=== PATIENT | male | born 1970 | race Caucasian/White ===

== ENCOUNTER 2016-08-10 22:46 | Inpatient (IN) | payer BC ==
[~2016-08-10] VITALS: Ht 182.9 cm; Wt 124.9 kg
--- NOTE | 2016-08-11 19:07 | ER ---
ADMIT: 08/11/2016 RM/LOC: 622 [facility] MR#: [id number] [id number] [address] NIEVES, DINAH Florez [place] [address] Emergency Room Report SEX: M AGE: 46 : 1970 DATE: 08/10/2016 HISTORY OF PRESENT ILLNESS: The patient is a 46-year-old male with past medical history of bipolar disorder and partial small bowel obstruction. Came to the ER with chief complaint of 1 day of zlvddzeo-kt-wceozi abdominal distention and also epigastric abdominal pain, which is crampy and moderate to severe. The patient states the previous time when he had similar symptoms, he was diagnosed with partial small bowel obstruction. The patient states at the moment, he is not nauseous and last bowel movement was yesterday and was slightly loose, but states that he was expecting to have a bowel movement daily, which he has not had yet. The patient is not sure whether he passed gas or not. PHYSICAL EXAMINATION: GENERAL: The patient is in moderate distress. HEAD and NECK: Normal. CHEST: Clear bilaterally. HEART: Normal heart sounds without any murmurs or gallops. ABDOMEN: Very distended, per patient, it is way more than the usual abdominal girth. There is moderate tenderness in the epigastric and upper quadrants, more in the epigastric. I can hear bowel sounds in all quadrants. There is no rebound or guarding. The rest of the physical examination is noncontributory and normal. LABORATORY DATA AND IMAGING: Lab work was noncontributory and negative. CT scan of the abdomen and pelvis was suggestive for partial small bowel obstruction. EMERGENCY ROOM COURSE: The patient received IV fluids, normal saline 1 L in the ER. Pain was moderately controlled with doses of morphine IV. Family Medicine was consulted. The patient was admitted for abdominal pain, partial small bowel obstruction rule out. Hunter Farmer MD/ darvin JOB #: [id number] CC: Buck Weir MD, Attending Physician Buck Weir MD, Family Physician
[2016-08-14] MEDS ORDERED: KLONOPIN DPS1 MG PO (10:47)
[2016-08-14] MEDS ORDERED: LAMICTAL200 MG PO (10:47)
[2016-08-14] MEDS ORDERED: CELEXA DPS20 MG PO (10:48)
[2016-08-14] MEDS ORDERED: INVEGA9 MG PO (10:48)
[2016-08-14] MEDS ORDERED: COLACE-DPS100 MG PO (10:49)
--- NOTE | 2016-09-02 10:39 | HP ---
ADMIT: 08/11/2016 RM/LOC: 622 [facility] MR#: [id number] [facility]#: [id number] [id number] [address] NIEVES, DIN[place] [address] History and Physical SEX: M AGE: 46 : 1970 DATE OF SERVICE: CHIEF COMPLAINT: A 48 hours of abdominal distention and generalized pain. HISTORY OF PRESENT ILLNESS: The patient is a 46-year-old male with past medical history of bipolar disorder and generalized anxiety disorder who presented to the emergency room with 48 hours of abdominal pain and distention. He reports that the distention happen slowly over the previous 48 hours along with that he developed an achy to sharp pain that was generalized throughout his abdomen, worst in the right lower quadrant. He did have a small bowel movement 24 hours prior to admission. They reported is a much smaller volume than typical. He denies any blood in his stools. He reports unremarkable bowel history stating his fairly regular bowel movements without any history of melena, hematochezia, or frequent diarrhea. He has no family history of inflammatory bowel disease. He was admitted 10 years ago for a small bowel obstruction that resolved with conservative management. He has never had any surgeries to his abdomen. He denies any nausea, vomiting, fevers, chills, chest pain, shortness of breath, or peripheral edema with this episode. He states that 6 hours since admission, he already feels significantly better feeling as if he is past some flatulence. PAST MEDICAL HISTORY: Bipolar disorder, generalized anxiety disorder, history of prior small bowel obstruction in 2006. MEDICATIONS: 1. Clonidine 1 mg p.o. daily. 2. Invega 9 mg p.o. daily. 3. Lamictal 400 mg p.o. daily. 4. Citalopram 20 mg p.o. daily. ALLERGIES: PENICILLIN. FAMILY HISTORY: The patient denies any family history of inflammatory bowel disease. He has diabetes in his father and pulmonary fibrosis. SOCIAL HISTORY: The patient is single. 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 Denies any alcohol or tobacco use. REVIEW OF SYSTEMS: A 10-point review of systems was completed and negative except as noted in the HPI. PHYSICAL EXAMINATION: VITAL SIGNS: 98.1, 75, 133/74, 18, 97%. GENERAL: Awake, alert, oriented, and in no acute distress. Sitting in bed, appears comfortable. HEENT: Head is normocephalic and atraumatic. Pupils are equal, round, and reactive to light. Extraocular muscles are intact. Mucous membranes are moist. NECK: Supple. Trachea is midline. Thyroid is not palpable. HEART: Regular rate and rhythm without murmur. No appreciable JVD, no ADMIT: 08/11/2016 RM/LOC: 622 [facility] MR#: [id number] [address] [address] DINAH PICKETT [address] [place] [address] History and Physical SEX: M AGE: 46 : 1970 carotid bruits. LUNGS: Clear to auscultation bilaterally. ABDOMEN: Obese, distended, mild tenderness to palpation greatest in the right lower quadrant. No rebound or guarding. No appreciable ascites. EXTREMITIES: Without cyanosis, clubbing, or edema. NEURO: Grossly intact. PSYCH: Normal mood and affect. LABORATORY DATA: WBC 8.3, HgB 14.6, PLT 244, creatinine 0.8. Lipase negative. CT scan distended with fluid-filled loops of small bowel in the right lower quadrant favoring high-grade partial small bowel obstruction with differential include strictures from inflammatory bowel disease or restriction from adhesions. ASSESSMENT: 1. Abdominal pain and distention secondary to small-bowel obstruction. 2. Small bowel focal narrowing on CT. 3. Bipolar disorder. 4. Anxiety. PLAN: We will admit the patient and made him n.p.o. with IV fluids to maintain hydration. We will advance the diet to clear liquids today as long as the patient tolerates without nausea and vomiting. May have morphine p.r.n. for pain. We will recommend the patient follows up as an outpatient for endoscopy and colonoscopy to further assess the structure seen on CT. Palma Wilkins MD Resident / Buck Weir MD / darvin JOB #: [id number] CC: Buck Weir, Attending Physician Buck Weir, Family Physician
--- NOTE | 2016-10-06 08:27 | DS ---
ADMIT: 08/11/2016 RM/LOC: 622 [facility] MR#: [id number] [id number] [address] DINAH PICKETT Jyoti Greer [place], [place] [id number] Discharge Summary SEX: M AGE: 46 : 1970 ADMISSION DATE: 08/11/2016 DISCHARGE DATE: 08/13/2016 FINAL DIAGNOSES: 1. Partial small bowel obstruction. 2. Bipolar disorder. 3. Generalized anxiety disorder. REASON FOR ADMISSION: This is a 46-year-old, white male, assigned to us on city call, who presented to the emergency room with abdominal distention, pain, discomfort for the last 48 hours. He had a small bowel movement the Friday prior to admission but no nausea no vomiting. Workup did reveal at least a partial small bowel obstruction. Therefore, he is admitted for further workup and stabilization. HOSPITAL COURSE: He was admitted on the 08/11/2016, kept n.p.o., rehydrate with IV normal saline. Zofran for pain Zofran for nausea and morphine for pain control. Enoxaparin was used for DVT prophylaxis. In the a.m. of 08/11 we did advance him to a clear liquid diet as he was improving. On 08/12, he felt better, no complains of pain, he was advanced to a full liquid diet. On 08/13, he was tolerating a full liquid diet without difficulty and was felt stable for discharge. DISCHARGE INSTRUCTIONS: 1. Celexa 20 mg at bedtime. 2. Invega 3 mg three tabs at bedtime. 3. Klonopin 1 mg at bedtime. 4. Lamictal 100 mg four tabs at bedtime. 5. Colace 100 mg b.i.d. p.r.n. 6. Follow up with Dr. Greenfield in 5-7 days. 7. Advance diet slowly. 8. CBC, CMP and upper GI with small-bowel series will be scheduled at follow up. Follow up sooner if needed. Buck Weir MD/ jennifer JOB #: [id number] CC: Buck Weir MD, Attending Physician Buck Weir MD, Family Physician
== END 2016-08-13 17:55 | disposition home or self-care (01) | DRG 390 ==
LOC: ER 22:46 → 6PED 08-11 01:10
PROVIDERS: ADMIT Family Medicine
DX: K56.60 Unspecified intestinal obstruction (principal); F31.9 Bipolar disorder, unspecified; F41.1 Generalized anxiety disorder